=== PATIENT | male | born 1980 | race Caucasian/White ===

== ENCOUNTER → 2016-05-25 | Outpatient (CLI) | payer OTHER | LOC: M LAB 12:56 | PROVIDERS: ATTEND Anesthesiology Pain Medicine | DX: E29.1 Testicular hypofunction (principal) ==

== ENCOUNTER → 2025-04-01 | Outpatient (REF) | payer OTHER, MEDICAID ==
[2025-04-01 18:33] LABS: GC DNA AMPLIFICATION NEGATIVE (NEGATIVE)
== END ==
LOC: M LAB REF 16:41
PROVIDERS: ATTEND Nurse Practitioner Family
DX: Z00.01 Encounter for general adult medical examination with abnormal findings (principal); Z11.3 Encounter for screening for infections with a predominantly sexual mode of transmission